=== PATIENT | male | born 1995 | race African-American/Black ===

== ENCOUNTER 2018-01-22 08:48 | Emergency (ER) | payer MEDICAID, OTHER ==
[~2018-01-22] VITALS: Ht 185.4 cm; Wt 100.0 kg
[~2018-01-22 08:48] MED LIST: DESE1CRE TOP; IBUP800T23 PO; RISP0.2516 PO
[2018-01-22 08:52] VITALS: BP 134/73; PULSE 85; RESP 16; TEMP 99.6; O2SAT 99
[2018-01-22] MEDS ORDERED: PRED10PA PO (09:40)
[2018-01-22] MEDS ORDERED: MAGICADU2 SWISH-SWAL (09:40)
--- NOTE | 2018-01-22 09:42 | PD ---
HPI Chief Complaint: ENT Complaint Time Seen by Provider: 09:15 Travel History International Travel<30 days: No Contact w/Intl Traveler<30days: No Traveled to known affect area: No History of Present Illness HPI 22-year-old -[place] male presents emergency department with 3 day history of sore throat and tonsillar swelling. Patient denies significant fever , headache, ear pain, postnasal drip, or cough. It is notable the patient has been on amoxicillin for 6 days for a dental infection which is improving. Patient denies nausea, vomiting, or abdominal pain. He has no rash. Throat pain is 8 out of 10, and he is having difficulty eating. The patient has no known drug allergies. PFSH Past Medical History ADHD: No Cancer: No Cardiovascular Problems: Yes ("IRREGULAR RHYTHM") Diabetes: No Diminished Hearing: No Psychiatric: Yes (ANGER ISSUES) Immunizations Current: Yes Migraines: No Seizures: No Thyroid Disease: No Ulcer: No Past Surgical History Other Surgery: No Social History Alcohol Use: No Tobacco Use: No Substance Use: No Allergies-Medications (Allergen,Severity, Reaction): Coded Allergies: No Known Allergies (Unverified , 12/30/11) Reported Meds & Prescriptions Reported Meds & Active Scripts Active Magic Mouthwash Adult Liq (Multi-Ingredient Mouthwash/Gargle) 120 Ml Susp 10 Ml SWISH-SWAL ACHS Each 5mL contains: Nystatin 200,000units, Diphenhydramine 4.25mg, Viscous Lidocaine 10mg, Brewster syrup 0.8 mL Prednisone (21) 10 mg tab Dose Pack (Prednisone) 10 Mg Pack 10 Mg PO DIRECTED Ibuprofen 800 Mg Tab 800 Mg PO TID PRN Clotrimazole 1 % Cre 1 Applic TOP BID APPLY TO: Reported Risperdal (Risperidone) 0.25 Mg Tab 0.25 Mg PO BID Review of Systems Except as stated in HPI: all other systems reviewed are Neg General / Constitutional: No: Fever, Chills Eyes: No: Visual changes HENT: Positive: Sore Throat, No: Headaches, Vertigo, Lightheadedness, Rhinitis , Rhinorrhea, Congestion, Nosebleed, Neck Stiffness, Neck Pain, Dental Difficulties, Earache Cardiovascular: No: Chest Pain or Discomfort Respiratory: No: Cough, Shortness of Breath, Wheezing Gastrointestinal: No: Nausea, Vomiting, Diarrhea, Abdominal Pain Genitourinary: No: Dysuria Musculoskeletal: No: Pain Skin: No Rash Neurologic: No: Weakness Psychiatric: No: Depression Endocrine: No: Polydipsia Hematologic/Lymphatic: No: Easy Bruising Physical Exam Narrative GENERAL: Patient appears in no obvious distress. SKIN: Warm and dry. Normal color. Normal turgor. HEAD: Atraumatic. Normocephalic. No sinus tenderness. EYES: Pupils equal and round. No scleral icterus. No injection or drainage. ENT: No nasal bleeding or discharge. Mucous membranes pink and moist. TMs are clear bilaterally. Posterior pharynx has moderate swelling, whitish green exudate, and fetid breath is noted. Tonsils are mildly swollen. Uvula is midline. Airway is patent. NECK: Trachea midline. Supple with mild anterior cervical lymphadenopathy. CARDIOVASCULAR: Regular rate and rhythm. RESPIRATORY: No accessory muscle use. Clear to auscultation. Breath sounds equal bilaterally. MUSCULOSKELETAL: Extremities without clubbing, cyanosis, or edema. No obvious deformities. NEUROLOGICAL: Awake and alert. No obvious cranial nerve deficits. Motor grossly within normal limits. Five out of 5 muscle strength in the arms and legs. Normal speech. PSYCHIATRIC: Appropriate mood and affect; insight and judgment normal. Data Data Last Documented VS Vital Signs Date Time Temp Pulse Resp B/P (MAP) Pulse Ox O2 Delivery O2 Flow Rate FiO2 01/22/18 08:52 99.6 85 16 134/73 (93) 99 MDM Medical Decision Making Medical Screen Exam Complete: Yes Emergency Medical Condition: Yes Differential Diagnosis Pharyngitis. [place]. Tonsillitis. Narrative Course Patient is felt to have mononucleosis, as he has been on amoxicillin for the past 6 days for a dental infection. Patient is to take Tylenol as needed for pain. Patient is given prednisone for the swelling as directed. Patient is given Magic mouthwash for pain control so he can eat. Work note is given for today. Patient should follow-up if symptoms worsen or do not improve after another week. Diagnosis Primary Impression: Acute pharyngitis due to infectious mononucleosis Referrals: Primary Care Physician Patient Instructions: General Instructions, Mononucleosis (ED), Pharyngitis (DC ) Additional Instructions: Patient is felt to have mononucleosis, as he has been on amoxicillin for the past 6 days for a dental infection. Patient is to take Tylenol as needed for pain. Patient is given prednisone for the swelling as directed. Patient is given Magic mouthwash for pain control so he can eat. Work note is given for today. Patient should follow-up if symptoms worsen or do not improve after another week. Med/Other Pt SpecificInfo: Prescription(s) given Scripts Eadkzryl-Pqhjlbxventuakf-Qytimyeyr Liq (Magic Mouthwash Adult Liq) 120 Ml Susp 10 ML SWISH-SWAL ACHS for Mouth sores, #120 ML 0 Refills Each 5mL contains: Nystatin 200,000units, Diphenhydramine 4.25mg, Viscous Lidocaine 10mg, Brewster syrup 0.8 mL Prov: Fer Wang MD 01/22/18 Prednisone (21) 10 mg tab Dose Pack (Prednisone (21) 10 mg tab Dose Pack) 10 Mg Pack 10 MG PO DIRECTED for Inflammation, #1 DSPK 0 Refills Prov: Fer Wang MD 01/22/18 Disposition: 01 DISCHARGE HOME Condition: Stable Gregorio Rojo January 22, 2018 09:42
== END 2018-01-22 10:00 | disposition home or self-care (01) ==
LOC: NEPK 08:48
DX: B27.90 Infectious mononucleosis, unspecified without complication (principal); K04.7 Periapical abscess without sinus
CPT/HCPCS: 99283